=== PATIENT | female | born 1945 | race Caucasian/White ===

== ENCOUNTER → 2016-08-11 02:40 | Emergency (ER) | payer MEDICARE, OTHER ==
[~2016-08-11 02:40] MED LIST: ADVAIR 250-501 EAC1 IH; CELEBREX PO; COMBIVENT INH14.7 GM INH; FLEXERIL PO; FLOVENT HFA12 GM INH; GABAPENTIN PO; GLIPIZIDE PO; LISINOPRIL PO; METFORMIN HCL1000 M1 PO; OMEPRAZOLE PO; REQUIP1 MG PO; VICODIN 5/500 T1 TAB PO; VITAMIN D PO
== END | disposition home or self-care (01) ==
LOC: CED 02:40
DX: R21 Rash and other nonspecific skin eruption (principal); L56.8 Other specified acute skin changes due to ultraviolet radiation; I10 Essential (primary) hypertension; J44.9 Chronic obstructive pulmonary disease, unspecified; E11.9 Type 2 diabetes mellitus without complications; Z90.710 Acquired absence of both cervix and uterus; F17.200 Nicotine dependence, unspecified, uncomplicated; Z88.8 Allergy status to other drugs, medicaments and biological substances; Z79.899 Other long term (current) drug therapy
CPT/HCPCS: 99282